=== PATIENT | male | born 1955 | race Caucasian/White ===

== ENCOUNTER 2024-04-08 12:42 | Outpatient (RCR) | payer MEDICARE, BC, SELFPAY ==
--- NOTE | 2024-04-08 16:45 | PT.OPEX ---
PT [place] Outpatient Eval PT [facility] Outpatient Eval Start: 04/08/24 14:26 Freq: Status: Active Protocol: Document 04/08/24 14:26 ROSEANN (Rec: 04/08/24 16:36 ROSEANN [id number]) E-signed By Minerva Cook DPT Physical Therapy Outpatient Evaluation Insurance Information Recert Due Date 06/07/24 Insurance Name Medicare B Medical Diagnosis bilateral hip bursitis Treating Diagnosis bilateral hip pain, limited tolerance for extended sitting /driving/walking, interrupted sleep Subjective Subjective Patient reports bilateral lateral hip pain, R>L, for about the last 3 months. Pain /sx started getting worse as patient decreased his golfing activities. States he felt better when he was moving, walking more with golfing. He continues to be active with home exercises, stretching and getting to the [employer] gym/pool several times a week. He c/o increased hip tightness, stiffness, pain after extended sitting/driving, pain with initial walking, and pain with lying on his sides. He takes tylenol on rare occasion. Tried some ice/heat, states that icing feels better but he only does it about once a week or so. He uses CBD oils, mushrooms for anti- inflammatory effects - states this has helped decrease bilateral knee pain. Patient leaves for [place] in about 2 weeks so he is hoping to get some information, exercises to continue with on his own (one PT visit). Pain range 2-6/10. Date of Last Physician Visit 04/06/24 Current Work Status Retired Precautions Treatment Precautions/Contraindications HX: R wrist fx with hardware, L hand fx with hardware, R shoulder decompression (bone spur) Assessment Assessment/Impression Patient is a 69 year old male with bilateral hip pain, limited tolerance for extended sitting/driving/walking, interrupted sleep. Pain range 2-6/10. Patient reports increased pain/soreness after extended sitting/driving/ walking. Also painful to lie on his sides at night so sleep is interrupted some. He is using tylenol and ice on occasion, but rarely. Stays active with golfing, home workouts, stretching, [employer] gym workouts/pool. [place] winter - leaving in a couple of weeks. Patient wanting to get information, pain management strategies, exercises to continue with on his own. He is hoping to continue on his own after one PT visit today. Patient reports hx of some back issues. He has functional core/hip/glut/LE strength. Bilateral lateral hip tightness, tenderness and ITB tightness, tenderness. Icing has been helpful. Recommend he ice 2x/day for 2 weeks to decrease pain/ inflammation. Discussed use of ointments, anti- inflammatory diet. Answered patient questions as able. Patient is using some CBD oils , mushrooms for his bilateral knee pain and that has been helpful. Reviewed his current stretching, exercise program. Able to progress with exercises this session. HEP issued. Also instructed in manual treatment with tennis ball, tiger tail (rolling pin) , foam roller, and massager. Patient will continue with these treatments at home. Patient would benefit from skilled PT for pain/sx management, core/hip/glut/LE strengthening and stretching to improve flexibility and decrease stress on hip/bursea, and establishment of HEP. Plan of Care Rehabilitation Potential Good Physical Therapy Goals 1. Decrease bilateral hip pain to less than/equal to 3/ 10 with daily activities and with the progression of PT activities over the next 3-4 weeks. 2. Improve hip/glut/LE/core strength over the next 6-8 weeks for return to daily activities with ease, normal gait, extended sitting /driving/walking without flare up of pain. 3. Patient will be I with HEP within 3-4 visits for progression toward above goals, ongoing self management of pain/sx, ongoing self improvements in bilateral hip ROM/mobility/strength, and for return to daily activities/standing/walking without flare up of pain. Coordination/Communication With Referral Source Treatment Plan/Direct Interventions Manual Therapy,Therapeutic Exercises Frequency/Duration 3-4 visits as needed (patient hoping to continue on his own after one visit) Patient Will Be Discharged From Therapy Completion of LTG(s),Skills Plateau,Independent w/HEP, Independently Progressing Evaluation Billing Untimed Code Treatment Minutes 20 Complexity Low Certification Information Initial Certification Date 04/08/24 Ending Certification Date 06/07/24 Provider Signature Required Yes Provider Signature Shows Agreement With POC & Medical Necessity Physician NPI Number Write NPI# Here Physician Comment/Change : Physician Signature & Date Requested Please Sign/Date Here
== END 2024-08-06 23:59 | disposition home or self-care (01) ==
PROVIDERS: PCP Orthopaedic Surgery; Visit Provider Orthopaedic Surgery
DX: M70.71 Other bursitis of hip, right hip (principal); M70.72 Other bursitis of hip, left hip; M25.552 Pain in left hip; M25.551 Pain in right hip; G47.9 Sleep disorder, unspecified; Z74.09 Other reduced mobility; Z51.89 Encounter for other specified aftercare
CPT/HCPCS: 97110; 97140; 97161